=== PATIENT | female | born 1970 | race African-American/Black ===

== ENCOUNTER 2016-12-15 15:58 | Emergency (ER) | payer OTHER ==
[~2016-12-15] VITALS: Ht 154.9 cm; Wt 93.0 kg
--- NOTE | 2016-12-15 18:00 | ED UPPER/LOWER EXTREMITY COMPL ---
History of Present Illness General Chief Complaint: Lower Extremity Problems Stated Complaint: "MY KNEES HURTS" 2WKS Source: patient Exam Limitations: no limitations Vital Signs & Intake/Output Vital Signs & Intake/Output Vital Signs Date Time Temp Pulse Resp B/P Pulse O2 O2 Flow FiO2 Ox Delivery Rate 12/15 1645 98.6 75 20 117/84 98 Room Air Room Air Allergies Coded Allergies: No Known Allergies (08/25/16) Reconcile Medications Naproxen (Naprosyn) 500 MG TABLET 1 TAB PO BID PRN PAIN Triage Note: PT TO ED WITH BILATERAL KNEE PAIN "STARTED WHEN THE WEATHER GOT COLD". PT AMBULATORY, GAIT STABLE. Triage Nurses Notes Reviewed? yes Onset: Gradual Duration: worse persistent since (4 MONTHS) Timing: recent history Severity: moderate Severity Numbers: 6 Pain/Injury Location: Bilateral: Knee. Method of Injury: unknown Modifying Factors: Improves With: immobilization. Worsens With: movement. : No Patient currently breastfeeds: No HPI: Patient is a 46-year-old female presenting to the emergency department with chief complaint of bilateral knee pain it's been going on for the past 3-4 months. Denies any specific injury but reports pain is worse with ambulation. Pain is worse at the end of the day. Has been using Tylenol without relief. Denies being evaluated for similar symptoms before. Denies numbness or stinging. No radiation of pain. Denies any calf pain. Past History Travel History Traveled to [place] past 21 day No Medical History Any Pertinent Medical History? see below for history Neurological: NONE EENT: NONE Cardiovascular: NONE Respiratory: NONE Gastrointestinal: GERD Hepatic: NONE Renal: NONE Musculoskeletal: NONE Psychiatric: NONE Endocrine: NONE Blood Disorders: NONE Cancer(s): NONE ANALYST MARKET INTELLIGENCE/Reproductive: NONE Surgical History Surgical History: none Psychosocial History What is your primary language Albanian Tobacco Use: Never used ETOH Use: denies use Illicit Drug Use: denies illicit drug use Family History Hx Contributory? No Review of Systems Review of Systems Constitutional: Reports: no symptoms. Comments Review of systems: See HPI, All other systems negative. Constitutional, no chills fever or weight loss HEENT: No visual changes no sore throat no congestion Cardiovascular: No chest pain Skin, no jaundice no rashes Respiratory: No dyspnea cough sputum or hemoptysis GI: No nausea no vomiting Muscle skeletal: no back pain, no neck pain, Neurologic: No numbness Immunology: No splenectomy or history of AIDS Physical Exam Physical Exam General Appearance: well developed/nourished, no apparent distress, alert, awake , comfortable Comments: Well-developed well-nourished no apparent distress. HEENT: Atraumatic, extraocular motion intact Neck: Supple, no lymphadenopathy Back: Nontender Respiratory: No respiratory distress Extremities: No edema, tender palpation over the medial aspect of both patellaS, negative anterior posterior drawer test bilaterally. No calf tenderness to palpation bilaterally. Pedal pulses are 2+ bilaterally. No erythema or edema or ecchymosis noted over the patella. Near full range of motion of bilateral knees somewhat limited secondary to pain. Neuro: Alert and oriented x3 Psych: Mood affect normal, normal memory normal judgment. Progress Differential Diagnosis: contusion, dislocation, fracture, gout, sprain, OSTEOARTHRITIS Plan of Care: Declines pain medication on arrival. Patient will fracture stool osteoarthritis as patient reports pain has been ongoing for several months. Only a fracture. No signs of septic joint. 12/15/2016 7:18:40 PM patient informed of x-ray results. She'll follow-up with orthopedics. Diagnostic Imaging: Viewed by Me: Radiology Read. Discussed w/RAD: Radiology Read. Radiology Impression: PATIENT: JAMIE PAYNE PRESENT AGE: 46 PATIENT ACCOUNT NO: [id number] : 71 LOCATION: [facility] ORDERING PHYSICIAN: DANIELA HARRIS SERVICE DATE: 12/15/16 EXAM TYPE: RAD - XRY-KNEE COMPLETE LEFT; XRY-KNEE COMPLETE RIGHT EXAMINATION: BILATERAL KNEE RADIOGRAPHS CLINICAL INFORMATION: 46-year-old woman with bilateral knee pain and difficulty ambulating. COMPARISON: None. TECHNIQUE: 4 views of both knees were obtained. FINDINGS: Right knee: There is no evidence of acute fracture. Alignment is approximately anatomic. There is mild loss of medial compartment articular cartilage space. Small degenerative osteophytes are seen in the medial compartment as well. There is no evidence of a significant suprapatellar joint effusion. Left knee: There is no evidence of acute fracture. Alignment remains anatomic. There is mild loss of medial compartment articular cartilage space and small degenerative osteophytes are noted in this compartment as well. There is no large suprapatellar joint effusion. IMPRESSION: No evidence of acute fracture or dislocation. Mild osteoarthritic changes are noted in both medial compartments. Departure Departure Time of Disposition: 1905 Disposition: HOME OR SELF CARE Condition: Stable Clinical Impression Primary Impression: Osteoarthritis Qualifiers: Osteoarthritis location: knee Osteoarthritis type: unspecified Laterality: bilateral Qualified Code: M17.0 - Bilateral primary osteoarthritis of knee Referrals: PATIENT HAS NO PRIMARY CARE DR (PCP/Family) PRECIOUS THOMAS,CHANA Solo Additional Instructions: Follow-up with orthopedics call to make an appointment, YOU will likely need further evaluation and workup if he pain persists.. Take naproxen as prescribed to help with pain. Return for worsening symptoms or concerns. Departure Forms: Customer Survey General Discharge Information Prescriptions: Current Visit Scripts Naproxen (Naprosyn) 1 TAB PO BID PRN PAIN #20 TAB
--- NOTE | 2016-12-15 18:55 | RADIOLOGY REPORT ---
EXAMINATION: BILATERAL KNEE RADIOGRAPHS CLINICAL INFORMATION: 46-year-old woman with bilateral knee pain and difficulty ambulating. COMPARISON: None. TECHNIQUE: 4 views of both knees were obtained. FINDINGS: Right knee: There is no evidence of acute fracture. Alignment is approximately anatomic. There is mild loss of medial compartment articular cartilage space. Small degenerative osteophytes are seen in the medial compartment as well. There is no evidence of a significant suprapatellar joint effusion. Left knee: There is no evidence of acute fracture. Alignment remains anatomic. There is mild loss of medial compartment articular cartilage space and small degenerative osteophytes are noted in this compartment as well. There is no large suprapatellar joint effusion. IMPRESSION: No evidence of acute fracture or dislocation. Mild osteoarthritic changes are noted in both medial compartments.
[2016-12-15] MEDS ORDERED: NAPROSYN500 M1 PO (19:07)
[2016-12-15 19:19] VITALS: BP 114/82
== END 2016-12-15 19:20 ==
LOC: ERH 15:58
DX: M17.0 Bilateral primary osteoarthritis of knee (principal)
CPT/HCPCS: 73562-LT; 73562-RT

== ENCOUNTER 2018-01-09 10:48 | Emergency (ER) | payer SELFPAY ==
[~2018-01-09] VITALS: Ht 160 cm; Wt 93.0 kg
[~2018-01-09 10:48] MED LIST: NAPROSYN500 M1 PO
[2018-01-09 10:51] VITALS: BP 114/74
--- NOTE | 2018-01-09 10:57 | ED INFLUENZA/URI COMPLAINT ---
History of Present Illness General Chief Complaint: Upper Respiratory Sx/Fever Stated Complaint: COUGH,CONGESTION Source: patient, old records Exam Limitations: no limitations Vital Signs & Intake/Output Vital Signs & Intake/Output Vital Signs Date Time Temp Pulse Resp B/P B/P Pulse O2 O2 Flow FiO2 Mean Ox Delivery Rate 01/09 1051 97.5 49 15 114/74 96 Room Air Room Air Allergies Coded Allergies: No Known Allergies (01/09/18) Reconcile Medications Codeine Phosphate/Guaifenesi (Guaifen-Codeine 100-10 MG/5 Ml) 10 MG-100 MG/5 ML LIQUID 10 ML PO Q6HR PRN COUGH Oseltamivir Phosphate (Tamiflu) 75 MG CAPSULE 1 CAP PO BID INFLUENZA Triage Note: PT TO ED FOR C/C OF COUGH AND CONGESTION X 4 DAYS WITH RUQ ABD PAIN ONLY WITH COUGHING. STEVEN LOVE PATIENT IN TRIAGE. Triage Nurses Notes Reviewed? yes Onset: Gradual Duration: day(s): (4), constant Timing: recent history Severity: moderate Severity Numbers: 5 No Modifying Factors: none Associated Symptoms: cough, nasal congestion, nasal drainage HPI: 47 yo female with no medical history presents c/o 4 days of rn medical inpatient services cough, congestion , rhionrrhea, generalized bodyaches. no fever, chills. pt reports to ruq abd pain only with coughing- no pain at thsi time or with rest. no nvd. no sick contacts. she has not taken anything for sx. no dsypena, cp. she dnoes not smoke. (Michael Oliver) Past History Travel History Traveled to [place] past 21 day No Medical History Any Pertinent Medical History? see below for history Neurological: NONE EENT: NONE Cardiovascular: NONE Respiratory: NONE Gastrointestinal: GERD Hepatic: NONE Renal: NONE Musculoskeletal: NONE Psychiatric: NONE Endocrine: NONE Blood Disorders: NONE Cancer(s): NONE RESEARCH ASSISTANT PROFESSOR/Reproductive: NONE Surgical History Surgical History: none Psychosocial History What is your primary language Amharic Tobacco Use: Never used ETOH Use: denies use Illicit Drug Use: denies illicit drug use Family History Hx Contributory? No (Michael Oliver) Review of Systems Review of Systems Constitutional: Reports: see HPI. Comments Review of systems: See HPI, All other systems negative. Constitutional, no chills no fever, no malaise no weight loss HEENT: no sore throat no congestion, no ear pain Cardiovascular: No chest pain , no palpitation Skin: no rashes, no change in skin Respiratory: No dyspnea no cough no sputum no hemoptysis GI: No nausea no vomiting, no diarrhea, no bloating/constipation : No dysuria No hematuria, no frequency Muscle skeletal: No joint pain, no back pain, no neck pain, Neurologic: , no headache Psych: No stress no depression,. Heme/endocrine: No bruising no bleeding Immunology: No lymphadenopathy (Michael Oliver) Physical Exam Physical Exam General Appearance: well developed/nourished, no apparent distress Ears, Nose, Throat: normal ENT inspection, moist mucous membrane Comments: Well-developed well-nourished patient in no apparent distress. Head/Face: Atraumatic, no maxillary/frontal sinus tenderness, no facial swelling Eyes: PERRL, EOMI, no conjunctival injection. No nystagmus Ear:External auditory canal and Tympanic membranes clear, no erythema, no FB. Nose: atraumatic.Normal inspection: No bleeding, no septal hematoma Throat: Moist mucous membranes.Pharynx normal. No pharyngeal erythema/exudate seen. No stridor/drooling or assymetry. No swelling or edema. Neck: Supple, no lymphadenopathy, FROM Back: FROM Cardiovascular: Regular rate and rhythms no murmurs rubs or gallops, Respiratory: Chest nontender.There were no bony deformities, no asymmetry. No respiratory distress. Patient speaking in full complete sentences. Breath sounds clear to auscultation bilaterally: NO W/R/R ABD: SOFT, NONTENDER, NO REBOUND NO GUARDING, NEG MURPHYS SIGN Extremities: full range of motion Neuro: awake, alert, and oriented to person, place and time. There were no obvious focal neurologic abnormalities. Skin: Warm & dry;No appreciable rash on exposed skin Psych: Mood affect normal, normal memory normal judgment. Core Measures Sepsis Present: No Sepsis Focused Exam Completed? No (Michael Oliver) Progress Differential Diagnosis: influenza, otitis, pneumonia, pharyngitis, sinusitis Plan of Care: Orders Procedure Date/time Status VIRAL CULTURE 01/09 1058 Active RAPID VIRAL INFLUENZA A 01/09 1056 Complete Laboratory Tests 01/09/18 1058: Virus Culture Pending Microbiology 01/09 1058 NASOPHARYN: Influenza Virus A & B Rapid Smear - COMP INFLUENZA TYPE B I discussed with the patient at length all of their results. I had an extensive conversation regarding need for close follow up with their primary care physician this week as well as return precautions. I answered all of their questions, they feel comfortable with the plan and follow-up care. I discussed with the patient/family the medications that they will receive. I gave them signs and symptoms that could indicate an adverse reaction. I have advised them to limit their activities until they can see how they respond to the medication. Initial ED EKG: none (Michael Oliver) Departure Departure Time of Disposition: 1141 Disposition: HOME OR SELF CARE Condition: Stable Clinical Impression Primary Impression: Influenza Referrals: Patient Has No Primary Care Dr (PCP/Family) Additional Instructions: TAMIFLU DIRECTED. INTERCHANGE TYLENOL AND MOTRIN FOR PAIN. GUAIFENSIN WITH CODEINE FOR COUGH- USE CAUTION THIS IS A NARCOTIC AND CAN MAKE YOU DROWSY. FOLLOW UP WITH YOUR PMD, RETURN WITH ANY CONCERNS Departure Forms: Customer Survey General Discharge Information Prescriptions: Current Visit Scripts Oseltamivir Phosphate (Tamiflu) 1 CAP PO BID #10 CAP Codeine Phosphate/Guaifenesi (Guaifen-Codeine 100-10 MG/5 Ml) 10 ML PO Q6HR PRN COUGH #150 ML (Michael Oliver) PA/TENTMAKER Co-Sign Statement Statement: ED Attending supervision documentation- [] I saw and evaluated the patient. I have also reviewed all the pertinent lab results and diagnostic results. I agree with the findings and the plan of care as documented in the PA's/TENTMAKER's documentation. [X] I have reviewed the ED Record and agree with the PA's/TENTMAKER's documentation. [] Additions or exceptions (if any) to the PAs/TENTMAKER's note and plan are summarized below: [] (Geovanny THOMAS,Trent Bullock)
[2018-01-09] MEDS ORDERED: TAMIFLU75 M1 PO (11:23)
[2018-01-09] MEDS ORDERED: GUAIFEN-CODEIN118 M1 PO (11:23)
== END 2018-01-09 11:41 ==
LOC: ERH 10:48
DX: J11.1 Influenza due to unidentified influenza virus with other respiratory manifestations (principal)
CPT/HCPCS: 87804; 87804-59